=== PATIENT | female | born 1960 | race Caucasian/White ===

== ENCOUNTER → 2023-03-11 | Outpatient (CLI) | payer BC ==
[~2023-03-11] MED LIST: ALPR-623 PO; ESCI5TAB PO; ESTR8.1S TOP; LANS30CA56 PO; TERB250T89 PO
== END | disposition home or self-care (01) ==
LOC: RAD 12:46
PROVIDERS: ATTEND Internal Medicine Gastroenterology
DX: R13.10 Dysphagia, unspecified (principal)
CPT/HCPCS: 74220